=== PATIENT | female | born 1960 | race Caucasian/White ===

== ENCOUNTER 2016-12-26 10:05 | Emergency (ER) | payer MEDICARE, OTHER ==
[2016-12-26] VITALS (8 sets, daily range): BP systolic 68–124; BP diastolic 38–71; PULSE 60–77; RESP 16–18; TEMP 97.7; O2SAT 95–100
[~2016-12-26] VITALS: Ht 162.6 cm; Wt 84.0 kg
[~2016-12-26 10:05] MED LIST: AMIT24CA5 PO; AMIT50TA3 PO; BETH50TA2 PO; DICL1GEL7 TOPICAL; HYDR-3583 PO; LABE100T2 PO; LEVO.15 PO; LISI-515 PO; ZANA4CAP PO
[2016-12-26] MEDS ORDERED: CYAN1000P IM (10:36)
[2016-12-26] MEDS ORDERED: KETO2AER TOPICAL (10:36)
[2016-12-26] MEDS ORDERED: AUGM500T7 PO (10:36)
[2016-12-26] MEDS ORDERED: TIZA4TAB PO (10:36)
[2016-12-26] MEDS ORDERED: CARV25TA PO (10:36)
[2016-12-26] MEDS ORDERED: HYDR-3578 (10:36)
[2016-12-26] MEDS ORDERED: AMBI10TA PO (10:36)
[2016-12-26] MEDS ORDERED: VITA2000 PO (10:36)
[2016-12-26] MEDS ORDERED: SODIUM CHLOR 0.9% 1000 ML INJ 1,000 ML IV ONE ×2 (10:45→13:00)
[2016-12-26 11:02] LABS: AUTOMATED NEUTROPHIL # 3.7 TH/MM3 (1.8-7.7); BASOPHIL % 0.6 % (0.0-2.0); EOSINOPHIL # 0.1 TH/MM3 (0-0.4); EOSINOPHIL % 1.6 % (0.0-4.0); HEMATOCRIT 36.8 % (35.0-46.0); HEMO FLAGS DIFF FINAL; LYMPH % 26.9 % (9.0-44.0); LYMPHOCYTE # 1.5 TH/MM3 (1.0-4.8); MEAN CORPUSCULAR HEMOGLOBIN 28.8 PG (27.0-34.0); MEAN CORPUSCULAR HGB CONC 33.2 % (32.0-36.0); MONO % 6.5 % (0.0-8.0); NEUT % 64.4 % (16.0-70.0); PLATELET COUNT 253 TH/MM3 (150-450); RED BLOOD COUNT 4.23 MIL/MM3 (4.00-5.30); RED CELL DISTRIBUTION WIDTH 14.9 % (11.6-17.2); WHITE BLOOD COUNT 5.7 TH/MM3 (4.0-11.0)
--- NOTE | 2016-12-26 11:02 | PD ---
HPI . Low blood pressure Chief Complaint: Abnormal Results Time Seen by Provider: 10:34 Travel History International Travel<30 days: No Contact w/Intl Traveler<30days: No Traveled to known affect area: No History of Present Illness HPI This patient presents with the chief complaint of low blood pressure. She states that her blood pressure was first noted below yesterday. She states she was being seen at an urgent care center for an injury to the right ribs days ago. She was found to have a systolic blood pressure there of 85. She states that she was instructed to "look into it." She had a separate doctor's appointment this morning for an injection. Her blood pressure was reportedly 48 /40. She was subsequently sent to us for treatment. The patient states that she has no idea why her blood pressure is somewhat low. She states that she is on blood pressure medication but that there has been no recent change to her medications. She states that she has not noted any blood loss. She has not had any vomiting or diarrhea. Her only recent problem has been the trip and fall that resulted in the right chest wall injury 6 days ago. Denies any difficulty breathing. Denies chest pain. She denies headache. She does state that she feels weak and dizzy. She denies any urinary tract symptoms. PFSH Past Medical History Cancer: Yes (THYROID) Cardiovascular Problems: No Diabetes: No Endocrine: No Gastrointestinal Disorders: Yes (REFLUX) Genitourinary: No Hepatitis: No Hiatal Hernia: Yes Hypertension: Yes Immune Disorder: No Musculoskeletal: Yes (BACK PAIN) Neurologic: No Psychiatric: No Reproductive: No Respiratory: No Thyroid Disease: Yes Past Surgical History AICD: No Body Medical Devices: PREVIOUS PLATES AND SCREWS IN L ANKLE --REMOVED 7 YEARS AGO Gynecologic Surgery: Yes (HYSTERECTOMY) Hysterectomy: Yes (TOTAL) Joint Replacement: No Oral Surgery: Yes (TONSILLECTOMY) Pacemaker: No Other Surgery: Yes (THYROIDECTOMY) Social History Alcohol Use: No Tobacco Use: No Substance Use: No Allergies-Medications (Allergen,Severity, Reaction): Coded Allergies: Morphine (Verified Allergy, Severe, Itching, 12/17/16) Ultram (Unverified Allergy, Intermediate, SEVERE ITCHING, 12/17/16) Adhesives (Unverified Adverse Reaction, Intermediate, TEARS SKIN, 12/17/16) PAPER TAPE OK TO USE Reported Meds & Prescriptions Reported Meds & Active Scripts Active Diclofenac Topical 1% Gel 1 Applic TOPICAL QID Reported Carvedilol 25 Mg Tab 25 Mg PO DAILY Lorcet Hd 10-325 mg (Hydrocodone-Acetaminophen) 1 Tab Tab Tizanidine (Tizanidine HCl) 4 Mg Tab 4 Mg PO QID Vitamin D3 (Cholecalciferol) 2,000 Unit Cap 2,000 Units PO DAILY Cyanocobalamin Inj (Cyanocobalamin) 1,000 Mcg/Ml Inj 1,000 Mcg IM ONCE Augmentin (Amoxicillin-Clavulanate) 500-125 mg Tab 500 Mg PO DAILY Ketoconazole Topical 2% Foam 1 Applic TOPICAL BID Ambien (Zolpidem Tartrate) 10 Mg Tab 10 Mg PO HS PRN Hydrocodone-Acetaminophen 10-325 mg Tab 1 Tab PO BID PRN Zanaflex (Tizanidine HCl) 4 Mg Cap 4 Mg PO QID Amitiza (Lubiprostone) 24 Mcg Cap 24 Mg PO BID Amitriptyline (Amitriptyline HCl) 50 Mg Tab 50 Mg PO HS Synthroid (Levothyroxine Sodium) 150 Mcg Tab 150 Mcg PO DAILY Lisinopril 20 Mg Tab 20 Mg PO BID Labetalol (Labetalol HCl) 100 Mg Tab 200 Mg PO BID Bethanechol 50 Mg Tab 50 Mg PO Q8HR Review of Systems Except as stated in HPI: all other systems reviewed are Neg General / Constitutional: No: Fever, Chills Eyes: No: Blurred Vision HENT: No: Headaches Cardiovascular: No: Chest Pain or Discomfort Respiratory: No: Shortness of Breath Gastrointestinal: No: Nausea, Vomiting, Diarrhea, Abdominal Pain, Hematemesis, Hematochezia Genitourinary: No: Urgency, Frequency, Dysuria, Hematuria Musculoskeletal: Positive: Pain (right chest wall pain) Neurologic: Positive: Weakness, Dizziness, No: Syncope, Focal Abnormalities Physical Exam Narrative Vital Signs Date Time Temp Pulse Resp B/P Pulse Ox O2 Delivery O2 Flow Rate FiO2 12/26/16 10:55 91/54 12/26/16 10:48 62 18 82/68 12/26/16 10:22 68 18 68/38 97 Room Air 12/26/16 10:08 97.7 77 16 70/48 100 GENERAL: This patient is awake and alert. SKIN: Warm and dry. Skin pink. HEAD: Atraumatic. Normocephalic. EYES: Pupils equal and round. Conjunctiva pink. ENT: No nasal bleeding or discharge. Mucous membranes pink and moist. NECK: Trachea midline. Neck supple. CARDIOVASCULAR: Regular rate and rhythm. Heart sounds normal. RESPIRATORY: No accessory muscle use. Lungs clear. GASTROINTESTINAL: Abdomen soft, non-tender, nondistended. RECTAL: Brown stool. No mass. MUSCULOSKELETAL: No obvious deformities. No edema. NEUROLOGICAL: Awake and alert. No obvious cranial nerve deficits. Motor grossly within normal limits. Normal speech. PSYCHIATRIC: Appropriate mood and affect; insight and judgment normal. Data Data Last Documented VS Vital Signs Date Time Temp Pulse Resp B/P Pulse Ox O2 Delivery O2 Flow Rate FiO2 12/26/16 12:00 60 18 124/67 95 Room Air 12/26/16 10:08 97.7 Orders Complete Blood Count With Diff (12/26/16 10:36) Comprehensive Metabolic Panel (12/26/16 10:36) Urinalysis - C+S If Indicated (12/26/16 10:36) Sodium Chlor 0.9% 1000 Ml Inj (Ns 1000 M (12/26/16 10:45) Ct Thorax/ Chest Wo Iv Contras (12/26/16 11:27) Ct Abd/Pel W/O Iv Contrast (12/26/16 11:27) Sodium Chlor 0.9% 1000 Ml Inj (Ns 1000 M (12/26/16 13:00) Orthostatic Vital Signs (12/26/16 13:00) Labs Laboratory Tests Test 12/26/16 10:41 White Blood Count 5.7 TH/MM3 Red Blood Count 4.23 MIL/MM3 Hemoglobin 12.2 GM/DL Hematocrit 36.8 % Mean Corpuscular Volume 87.0 FL Mean Corpuscular Hemoglobin 28.8 PG Mean Corpuscular Hemoglobin 33.2 % Concent Red Cell Distribution Width 14.9 % Platelet Count 253 TH/MM3 Mean Platelet Volume 8.2 FL Neutrophils (%) (Auto) 64.4 % Lymphocytes (%) (Auto) 26.9 % Monocytes (%) (Auto) 6.5 % Eosinophils (%) (Auto) 1.6 % Basophils (%) (Auto) 0.6 % Neutrophils # (Auto) 3.7 TH/MM3 Lymphocytes # (Auto) 1.5 TH/MM3 Monocytes # (Auto) 0.4 TH/MM3 Eosinophils # (Auto) 0.1 TH/MM3 Basophils # (Auto) 0.0 TH/MM3 CBC Comment DIFF FINAL Differential Comment Sodium Level 139 MEQ/L Potassium Level 4.2 MEQ/L Chloride Level 101 MEQ/L Carbon Dioxide Level 30.3 MEQ/L Anion Gap 8 MEQ/L Blood Urea Nitrogen 15 MG/DL Creatinine 1.49 MG/DL Estimat Glomerular Filtration 36 ML/MIN Rate Random Glucose 60 MG/DL Calcium Level 8.3 MG/DL Total Bilirubin 0.3 MG/DL Aspartate Amino Transf 23 U/L (AST/SGOT) Alanine Aminotransferase 20 U/L (ALT/SGPT) Alkaline Phosphatase 77 U/L Total Protein 7.7 GM/DL Albumin 4.2 GM/DL MDM Medical Decision Making Medical Screen Exam Complete: Yes Emergency Medical Condition: Yes Differential Diagnosis My differential diagnosis of hypotension includes but is not limited to acute blood loss, gastroenteritis, medication effect Narrative Course This patient presents with hypotension. The etiology of her hypotension is currently unknown. Have initiated a trauma workup because of the history of a fall with a rib injury a week ago. The patient is currently receiving IV fluids for blood pressure support. CBC & BMP Diagram 12/26/16 10:41 LFTs normal. The patient's blood pressure stabilized after 2 L of fluid. The patient states that she wants to go home. I have not found a reason for her blood pressure to be low but it is now stable. Critical Care Narrative Aggregate critical care time was 30 minutes. Time to perform other separately billable procedures was not included in the critical care time. My time did not include minutes spent treating any other patients simultaneously or on activities that did not directly contribute to the patient's treatment. The services I provided to this patient were to treat and/or prevent clinically significant deterioration due to hypotension I provided critical care services requiring my management, as noted below: Chart data review, documentation time, medication orders and management, vital sign assessments/reviewing monitor data, ordering and reviewing lab tests, ordering and interpreting/reviewing x-rays and diagnostic studies, care of the patient and discussion of the patient with the admitting physicians HemaPrompt Point of Care Internal Pos. & Neg. Controls: Passed Fecal Specimen Occult Blood: Negative Diagnosis Primary Impression: Hypotension Qualified Code: I95.9 - Hypotension, unspecified hypotension type Additional Instructions: I am adjusting her dose of labetalol from 200 mg twice a day to 100 mg twice a day. Please see your doctor next week for recheck of your blood pressure. Med/Other Pt SpecificInfo: Existing Med Changed Scripts Labetalol 100 Mg Xat310 Mg PO BID 30 Days Ref 0 Prov:Iman Knowles MD 12/26/16 Disposition: 01 DISCHARGE HOME Condition: Stable Iman Knowles MD Dec 26, 2016 11:02
[2016-12-26 11:18] LABS: ANION GAP 8 MEQ/L (5-15); AST (GOT) 23 U/L (15-37); BICARBONATE 30.3 MEQ/L (21.0-32.0); BLOOD UREA NITROGEN 15 MG/DL (7-18); CHLORIDE 101 MEQ/L (98-107); GLOMERULAR FILTRATION RATE 36 ML/MIN (>89); POTASSIUM 4.2 MEQ/L (3.5-5.1); SODIUM (NA) 139 MEQ/L (136-145)
[2016-12-26 11:19] LABS: ALT (GPT) 20 U/L (10-53)
[2016-12-26 11:21] LABS: ALKALINE PHOSPHATASE 77 U/L (45-117); TOTAL BILIRUBIN ADULT 0.3 MG/DL (0.2-1.0)
--- NOTE | 2016-12-26 12:42 | RADRPT ---
EXAM DATE/TIME: 12/26/2016 12:14 [facility] COMPARISON: CT ABDOMEN & PELVIS W CONTRAST, January 02, 2015, 15:55. INDICATIONS : Fall last week, low blood pressure with pain in her chest ORAL CONTRAST: No oral contrast ingested. RADIATION DOSE: 18.84 CTDIvol (mGy) ; Combined studies - Thorax/Abdomen/Pelvis MEDICAL HISTORY : Hypertension. Thyroid cancer and removal SURGICAL HISTORY : Hysterectomy. ENCOUNTER: Initial ACUITY: 4 - 6 days PAIN SCALE: 5/10 LOCATION: Abdominal area TECHNIQUE: Volumetric scanning of the abdomen and pelvis was performed. Using automated exposure control and ad justment of the mA and/or kV according to patient size, radiation dose was kept as low as reasonably achievable to obtain optimal diagnostic quality images. DICOM format image data is available electro nically for review and comparison. FINDINGS: LOWER LUNGS: The visualized lower lungs are clear. LIVER: Homogeneous density with multiple low-density lesions. There is no dilation of the biliary tree. No calcified gallstones. SPLEEN: Normal size without lesion. PANCREAS: Within normal limits. KIDNEYS: Normal in size and shape. There is no mass, stone, or hydronephrosis. ADRENAL GLANDS: Within normal limits. VASCULAR: There is no aortic aneurysm. BOWEL/MESENTERY: The stomach, small bowel, and colon demonstrate no acute abnormality. There is no free intraperitone al air or fluid. ABDOMINAL WALL: Within normal limits. RETROPERITONEUM: There is no lymphadenopathy. BLADDER: No wall thickening or mass. REPRODUCTIVE: Within normal limits. INGUINAL: There is no lymphadenopathy or hernia. MUSCULOSKELETAL: Within normal limits for patient age. CONCLUSION: 1. No acute inflammatory process. 2. Multiple hepatic low densities, stable. 3. No renal calculi or hydronephrosis. Stu Hyde MD on December 26, 2016 at 12:36 Board Certified Radiologist. This report was verified electronically.
--- NOTE | 2016-12-26 12:48 | RADRPT ---
EXAM DATE/TIME: 12/26/2016 12:14 [facility] COMPARISON: No previous studies available for comparison. INDICATIONS : Fall last week, low blood pressure pain in ribs RADIATION DOSE: 18.84 CTDIvol (mGy) ; Combined studies - Thorax/Abdomen/Pelvis MEDICAL HISTORY : Hypertension. Thyroid cancer and removal SURGICAL HISTORY : Hysterectomy. ENCOUNTER: Initial ACUITY: 4 - 6 days PAIN SCALE: 4/10 LOCATION: chest TECHNIQUE: Volumetric scanning of the chest was performed. Using automated exposure control and adjustment of t he mA and/or kV according to patient size, radiation dose was kept as low as reasonably achievable to obtain optimal diagnostic quality images. DICOM format image data is available electronically for r eview and comparison. Follow-up recommendations for incidentally detected pulmonary nodules are based at a minimum on nodul e size and patient risk factors according to Fleischner Society Guidelines. FINDINGS: LUNGS: There is no consolidation or pneumothorax. No concerning pulmonary nodule is visualized. Linear atel ectasis versus scarring involving both lung bases. PLEURAE: There is no pleural thickening or pleural effusion. MEDIASTINUM: The heart and great vessels demonstrate no acute abnormality. There is no mediastinal or hilar lymph adenopathy. AXILLAE: Within normal limits. No lymphadenopathy. MUSCULOSKELETAL: Within normal limits for patient age. MISCELLANEOUS: See the CT of the abdomen and pelvis reported separately. CONCLUSION: No acute disease. Alonso Lui Jr., MD on December 26, 2016 at 12:41 Board Certified Radiologist. This report was verified electronically.
[2016-12-26] MEDS ORDERED: LABE100T2 PO (13:18)
[2016-12-26 13:23] LABS: BLOOD, URINE NEG (NEG); COMMENT (UR) CULT NOT INDICATED; CULTURE IF INDICATED CULT NOT INDICATED; GLUCOSE,URINE NEG (NEG); KETONE, URINE NEG (NEG); NITRITE,URINE NEG (NEG); PH, URINE 5.5 (5.0-8.5); SQUAMOUS EPITHELIAL CELL URINE <1 /hpf (0-5); URINE COLOR LIGHT-YELLOW (YELLW/STRAW)
== END 2016-12-26 14:00 | disposition home or self-care (01) ==
LOC: NEPE 10:05
DX: I95.9 Hypotension, unspecified (principal); E07.9 Disorder of thyroid, unspecified; Z85.850 Personal history of malignant neoplasm of thyroid; I10 Essential (primary) hypertension; K21.9 Gastro-esophageal reflux disease without esophagitis
CPT/HCPCS: 71250; 74176; 80053; 81001; 85025; 99291; J7030